=== PATIENT | male | born 1965 | race Caucasian/White ===

== ENCOUNTER 2022-05-14 11:52 | Emergency (ER) | payer MEDICAID ==
[~2022-05-14] VITALS: Ht 177.8 cm; Wt 83.9 kg
[2022-05-14 12:01] VITALS: BP 139/90
[2022-05-14 12:48] LABS: BASOPHILS % (AUTO) 0.3 % (0.0-2.0); EOSINOPHILS % (AUTO) 0.2 % (0.0-4.0); HEMATOCRIT 27.2 % (36-52); HEMOGLOBIN 9.4 g/dL (12.0-18.0); LYMPHOCYTES # (AUTO) 1.2 K/uL (2.0-11.5); LYMPHOCYTES % (AUTO) 12.3 % (20.5-51.1); MEAN CORPUSCULAR HEMOGLOBIN 32 pg (27-31); MEAN CORPUSCULAR HGB CONC 35 g/dL (33-37); MEAN CORPUSCULAR VOLUME 91.3 fL (80-94); MONOCYTES # (AUTO) 0.6 K/uL (0.8-1.0); MONOCYTES % (AUTO) 5.8 % (1.7-9.3); NEUTROPHILS # (AUTO) 8.2 K/uL (1.8-7.7); NEUTROPHILS % (AUTO) 81.4 % (42.2-75.2); PLATELET COUNT (AUTO) 226 K/uL (140-450); RED BLOOD CELL COUNT(AUTO) 2.98 MIL/uL (4.20-6.10); RED CELL DISTRIBUTION WIDTH 14.1 % (11.6-13.7); WHITE BLOOD COUNT (AUTO) 10.1 K/uL (4.8-10.8)
[2022-05-14 13:07] LABS: ALBUMIN 3.9 g/dL (3.4-5.0); ANION GAP 12.6 (8-16); CARBON DIOXIDE 26.4 mmol/L (21-32); CREATININE 0.9 mg/dL (0.6-1.3); TOTAL BILIRUBIN 0.7 mg/dL (0.0-1.0)
[2022-05-14] MEDS ORDERED: ONDANSETRON 4 MG ODT PO ONE (14:50)
--- NOTE | 2022-05-14 15:08 | NUR ---
pt given orange juice for po challenge at this time
[2022-05-14] MEDS ORDERED: ONDA-188 SL (15:36)
--- NOTE | 2022-05-14 15:48 | NUR ---
Patient discharged with v/s stable. Written and verbal after care instructions given and explained. Patient alert, oriented and verbalized understanding of instructions. Ambulatory with steady gait. All questions addressed prior to discharge. ID band removed. Patient advised to follow up with PMD. Rx of ZOFRN given. Patient educated on indication of medication including possible reaction and side effects. Opportunity to ask questions provided and answered.
[2022-05-15] MEDS ORDERED: ONDA-188 SL (12:20)
== END 2022-05-14 15:48 | disposition home or self-care (01) ==
LOC: MED 11:52
DX: R53.1 Weakness (principal); D64.9 Anemia, unspecified; I10 Essential (primary) hypertension; E11.9 Type 2 diabetes mellitus without complications; Z79.4 Long term (current) use of insulin; Z79.899 Other long term (current) drug therapy
CPT/HCPCS: 36415; 71045; 80053; 85025; 93005; 99285; Q0162